=== PATIENT | male | born 1955 | race Caucasian/White ===

== ENCOUNTER 2020-05-21 15:58 | Emergency (ER) | payer MEDICARE, BC ==
[2020-05-21] MEDS ORDERED: Sodium Chloride 0.9% 1,000 ML IV ONE (16:06)
--- NOTE | 2020-05-21 17:11 | EDM.PDOC ---
ED HPI GENERAL MEDICAL PROBLEM - General Chief Complaint: General Stated Complaint: heat exhaustion Time Seen by Provider: 05/21/20 16:00 Source of Information: Reports: Patient History Limitations: Reports: No Limitations - History of Present Illness INITIAL COMMENTS - FREE TEXT/NARRATIVE: Patient is a 64 y/o male who presents to the ED by his for possible heat injury. She states he has been in the hot sun all weekend and not drinking that much fluids. Patient denies any dizziness, headache, chest pain, SOB, abdominal pain, muscle cramps, or numbness/tingling. Past Medical History HEENT History: Reports: None - Past Surgical History HEENT Surgical History: Reports: None Social & Family History - Family History Family Medical History: Noncontributory - Tobacco Use Smoking Status *Q: Never Smoker Second Hand Smoke Exposure: No - Caffeine Use Caffeine Use: Reports: Coffee - Alcohol Use Days Per Week of Alcohol Use: 3 Number of Drinks Per Day: 2 Total Drinks Per Week: 6 - Recreational Drug Use Recreational Drug Use: No ED ROS GENERAL - Review of Systems Review Of Systems: Comprehensive ROS is negative, except as noted in HPI. ED EXAM, GENERAL - Physical Exam Exam: See Below Free Text/Narrative:: Patient with first degree sun burn to his face. Skin is dry. Exam Limited By: No Limitations General Appearance: Alert, No Apparent Distress Respiratory/Chest: No Respiratory Distress, Lungs Clear, Normal Breath Sounds, No Accessory Muscle Use, Chest Non-Tender Cardiovascular: Normal Peripheral Pulses, Regular Rate, Rhythm, No Edema, No Murmur Peripheral Pulses: 2+: Radial (L), Radial (R), Posterior Tibial (L), Posterior Tibial (R), Dorsalis Pedis (L), Dorsalis Pedis (R) GI/Abdominal: Normal Bowel Sounds, Soft, Non-Tender, No Distention Skin Exam: Warm, Dry Course - Vital Signs Text/Narrative:: 1 Liter of NS given. All labs unremarkable, except CK is a bit elevated. Patient feels better. Will discharge home. Last Recorded V/S: Last Vital Signs Temp 38.0 C 05/21/20 16:45 Pulse 81 05/21/20 16:45 Resp 18 05/21/20 16:45 BP 118/73 05/21/20 16:45 Pulse Ox 98 05/21/20 16:45 - Orders/Labs/Meds Labs: Laboratory Tests 05/21/20 05/21/20 05/21/20 Range/Units 16:10 16:10 16:10 WBC 7.9 (4.0-11.0) K/uL RBC 4.61 (4.50-6.50) M/uL Hgb 14.8 (13.0-18.0) g/dL Hct 43.0 (40.0-54.0) % MCV 93 (76-96) fL MCH 32.1 H (27.0-32.0) pg MCHC 34.4 (31.0-35.0) g/dL RDW 15.3 (11.0-16.0) % Plt Count 209 (150-400) K/uL MPV 9.9 (6.0-10.0) fL Neut % (Auto) 78.1 H (45.0-70.0) % Lymph % (Auto) 8.8 L (20.0-40.0) % [place] % (Auto) 11.2 H (3.0-10.0) % Eos % (Auto) 1.4 (1.0-5.0) % Baso % (Auto) 0.5 (0.0-0.5) % Neut # (Auto) 6.13 (2.00-7.50) K/uL Lymph # (Auto) 0.69 L (1.50-4.00) K/uL [place] # (Auto) 0.88 H (0.20-0.80) K/uL Eos # (Auto) 0.11 (0.04-0.40) K/uL Baso # (Auto) 0.04 (0.02-0.10) K/uL Sodium 133 L (136-145) mmol/L Potassium 3.7 (3.5-5.1) mmol/L Chloride 97 L (98-107) mmol/L Carbon Dioxide 26.8 (21.0-32.0) mmol/L Anion Gap 12.9 (5.0-15.0) mmol/L BUN 13 (8-26) mg/dL Creatinine 0.89 (0.70-1.30) mg/dL Est Cr Clr Drug Dosing TNP Estimated GFR (MDRD) > 60 (>60) MLS/MIN BUN/Creatinine Ratio 14.6 (6-25) Glucose 98 (74-100) mg/dL Calcium 8.6 (8.5-10.1) mg/dL Total Bilirubin 0.9 (0.0-1.0) mg/dL AST 25 (15-37) U/L ALT 39 (12-78) U/L Alkaline Phosphatase 68 (46-116) U/L Creatine Kinase 309 H (21-232) U/L Total Protein 7.2 (6.4-8.2) g/dL Albumin 4.1 (3.4-5.0) g/dL Globulin 3.1 (2.2-4.2) g/dL Albumin/Globulin Ratio 1.3 (0.8-2.0) Meds: Medications Discontinued Medications Generic Name Dose Route Start Last Admin Trade Name Freq PRN Reason Stop Dose Admin Sodium Chloride 1,000 mls @ 1,000 mls/sec 05/21/20 16:06 05/21/20 16:53 Normal Saline IV 05/21/20 16:07 1,000 mls/sec .BOLUS ONE Administration Departure - Departure Time of Disposition: 17:14 Disposition: Home, Self-Care 01 Condition: Good Clinical Impression: Sunburn of first degree - Discharge Information *PRESCRIPTION DRUG MONITORING PROGRAM REVIEWED*: Not Applicable *COPY OF PRESCRIPTION DRUG MONITORING REPORT IN PATIENT QUAN: Not Applicable Referrals: PCP,None [Primary Care Provider] - Sepsis Event Note (ED) - Evaluation Sepsis Screening Result: No Definite Risk - Focused Exam Vital Signs: Vital Signs Temp Pulse Resp BP Pulse Ox 05/21/20 16:45 38.0 C 81 18 118/73 98 - Assessment/Plan Plan: Stay out of the sun for a few days. Plenty of fluids and electrolyte drinks. No alcohol. Return to the ED for fever >102, unable to tolerate fluids, difficulty breathing/swallowing, and/or persistent/worsening symptoms.
== END 2020-05-21 17:32 | disposition home or self-care (01) ==
LOC: LB.ED 15:58
DX: L55.0 Sunburn of first degree (principal); R42 Dizziness and giddiness
CPT/HCPCS: 36415; 80053; 82550; 85025; 96360; 99283; J7030